=== PATIENT | female | born 2005 | race Two or more races ===

== ENCOUNTER 2024-04-29 07:47 | Emergency (ER) | payer OTHER ==
[~2024-04-29] VITALS: Ht 157.5 cm; Wt 56.2 kg
[~2024-04-29 07:47] MED LIST: MUCINEX COLD L118 ML PO
[2024-04-29] MEDS ORDERED: KETOROLAC TROMETHAMINE 15 MG VIAL IU ONE (09:00)
[2024-04-29] MEDS ORDERED: KETOROLAC TROMETHAMINE 30 MG VIAL ONE (09:00)
[2024-04-29] MEDS ORDERED: 0.9 % SODIUM CHLORIDE 1,000 ML IV SCH (09:00)
[2024-04-29 09:38] LABS: HEMATOCRIT 42.2 % (36.0-45.00); HEMOGLOBIN 14.4 g/dL (12.0-15.00); MEAN CORPUSCULAR HEMOGLOBIN 30.7 pg (27.00-32.0); MEAN CORPUSCULAR HGB CONC 34.1 g/dl (32.0-36.0); PLATELET COUNT 404 K/uL (150-450); RED BLOOD COUNT 4.69 M/uL (4.00-6.00); RED CELL DISTRIBUTION WIDTH 12.3 % (11.5-14.5)
[2024-04-29 10:01] LABS: ALBUMIN 3.9 gm/dL (3.4-5.0); BILIRUBIN TOTAL 0.35 mg/dL (0.3-1.2); CALCIUM 9.4 mg/dL (8.5-10.1); CREATININE SERUM 0.58 mg/dL (0.55-1.02); GFR 132.54; GLOBULINA 5.1 G/DL (2.4-3.5); POTASSIUM 4.08 mEq/L (3.5-5.1)
[2024-04-29 10:23] LABS: URINE APPEARANCE Clear; URINE BILIRRUBIN Negative (NEGATIVE); URINE BLOOD Negative; URINE COLOR Yellow; URINE GLUCOSE Negative (NEGATIVE); URINE KETONE Negative (NEGATIVE); URINE LEUKOCYTE Trace; URINE NITRATE Negative; URINE PROTEIN Negative (NEGATIVE)
[2024-04-29 10:28] LABS: URINE BACTERIA 387.9 uL (0.0-1933); URINE EPITHELIAL CELLS 10.6 uL (0.0-38.8); URINE WBC 12.1 uL (0.0-23.2)
[2024-04-29 10:44] LABS: URINE CAST 0.14 uL (0.0-1.40)
[2024-04-29] MEDS ORDERED: CIPROFLOXACIN IN 5 % DEXTROSE 400 MG/200 ML PIGGYBAG IV ONE ×2 (14:00→14:13)
[2024-04-29] MEDS ORDERED: CIPRO500 MG PO (15:02)
== END 2024-04-29 20:59 | disposition home or self-care (01) ==
LOC: ER 07:50 → EMR PED 08:27
PROVIDERS: Student in an Organized Health Care Education/Training Program
DX: R10.9 Unspecified abdominal pain (principal)
CPT/HCPCS: 36415; 74177; 76700; 96365; 96366; 99284; J0744; J1885; J7030; Q9965